=== PATIENT | female | born 1945 | race Caucasian/White ===

== ENCOUNTER 2017-08-07 13:43 | Observation (INO) | payer MEDICARE ==
--- NOTE | 2017-08-07 14:11 | RADIOLOGY REPORT (SQ) ---
EXAM DESCRIPTION: CT HEAD WITHOUT COMPLETED DATE/TIME: 08/07/2017 1:54 pm REASON FOR STUDY: stroke s/s COMPARISON: None. TECHNIQUE: Axial images acquired through the brain without intravenous contrast. Images reviewed wi th bone, brain and subdural windows. Additional sagittal and coronal reconstructions were generated. Images stored on PACS. All CT scanners at this facility use dose modulation, iterative reconstruction, and/or weight based d osing when appropriate to reduce radiation dose to as low as reasonably achievable (ALARA). [facility]: Dose Right [facility]: CareDose [facility]: Dose Right [facility]: Teradose 4D [facility]: [email or web address] RADIATION DOSE: CT Rad equipment meets quality standard of care and radiation dose reduction techniq ues were employed. CTDIvol: 53.2 mGy. DLP: 991 mGy-cm. mGy. LIMITATIONS: None. FINDINGS: VENTRICLES: Normal size and contour. CEREBRUM: No masses. No hemorrhage. No midline shift. No evidence for acute infarction. Normal gra y/white matter differentiation. No areas of low density in the white matter. CEREBELLUM: No masses. No hemorrhage. No alteration of density. No evidence for acute infarction. EXTRAAXIAL SPACES: No fluid collections. No masses. ORBITS AND GLOBE: No intra- or extraconal masses. Normal contour of globe without masses. CALVARIUM: No fracture. PARANASAL SINUSES: No fluid or mucosal thickening. SOFT TISSUES: No mass or hematoma. OTHER: No other significant finding. IMPRESSION: NORMAL BRAIN CT WITHOUT CONTRAST. EVIDENCE OF ACUTE STROKE: NO. COMMENT: Findings were reported to the ordering physician at 1406 hours on this date. Quality ID # [id number]: Final reports with documentation of one or more dose reduction techniques (e.g., Au tomated exposure control, adjustment of the mA and/or kV according to patient size, use of iterative reconstruction technique) TECHNICAL DOCUMENTATION: JOB ID: [id number] [employer] All Rights Reserved Reading location - IP/workstation name: [email or web address]
--- NOTE | 2017-08-07 14:30 | ER Document Report ---
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 Patient denies chest pain or shortness of breath. TRAVEL OUTSIDE OF THE [place] IN LAST 30 DAYS: No - HPI Patient complains to provider of: Other Onset: Just prior to arrival - Numbness Awoke with symptoms: No Symptoms are: Constant Duration: Continues in ED Quality of pain: No pain Severity: None Pain Level: Denies Loss of consciousness: No loss of consciousness Was STROKE ALERT Called: Yes Baseline Cognitive: Alert, oriented X 3 Baseline Gait: Uses a cane/walker - She walks with a brace Pre-existing weakness: Upper extremity Alert To: Name/Voice Patient Orientation: Person, Place, Time New weakness: denies: LUE, LLE, RUE, RLE Altered sensation: denies: LUE, LLE, RUE, RLE Associated symptoms: denies: Chest pain, Headache Similar symptoms previously: Yes Recently seen / treated by doctor: No - Related Data Allergies/Adverse Reactions: Sulfa (Sulfonamide Antibiotics) Allergy (Verified 08/07/17 14:20) Past Medical History - General Information source: Patient - Social History Smoking Status: Never Smoker Cigarette use (# per day): No Chew tobacco use (# tins/day): No Frequency of alcohol use: None Drug Abuse: None Lives with: Family Family History: None Patient has suicidal ideation: No Patient has homicidal ideation: No Endocrine Medical History: Reports: Hx Diabetes Mellitus Type 2 Renal/ Medical History: Reports: None. Denies: Hx Peritoneal Dialysis Malignancy Medical History: Reports: None GI Medical History: Reports: None Musculoskeltal Medical History: Reports None Skin Medical History: Reports None Psychiatric Medical History: Reports: None Traumatic Medical History: Reports: None Infectious Medical History: Reports: None Past Surgical History: Reports: Hx Cardiac Catheterization, Hx Cardiac Surgery - stent x3, Hx Section - x3, Hx Orthopedic Surgery - left ankle, right knee Review of Systems - Review of Systems Constitutional: denies: Chills, Fever EENT: No symptoms reported Cardiovascular: No symptoms reported Respiratory: No symptoms reported Gastrointestinal: No symptoms reported Genitourinary: No symptoms reported Female Genitourinary: No symptoms reported Musculoskeletal: No symptoms reported Skin: No symptoms reported Hematologic/Lymphatic: No symptoms reported Neurological/Psychological: See HPI Physical Exam - Vital signs Vitals: Pulse Resp BP Pulse Ox 65 12 152/78 H 99 08/07/17 14:09 08/07/17 14:09 08/07/17 14:09 08/07/17 14:09 Notes: Physical exam: GENERAL: 72-year-old female, alert and oriented 3, no acute distress HEAD: Atraumatic, normocephalic. EYES: Pupils equal round and reactive to light, extraocular movements intact, sclera anicteric, conjunctiva are normal. ENT: TMs normal, nares patent, oropharynx clear without exudates. Moist mucous membranes. NECK: Normal range of motion, supple without obvious mass or JVD. LUNGS: Breath sounds clear to auscultation bilaterally and equal. No wheezes rales or rhonchi. HEART: Regular rate and rhythm without murmurs, rubs or gallops. ABDOMEN: Soft, normoactive bowel sounds. No tenderness to palpation. No guarding, no rebound. No masses appreciated. EXTREMITIES: Normal range of motion, no pitting or edema. No clubbing or cyanosis. NEUROLOGICAL: Cranial nerves II through XII grossly intact except for subjective numbness to the left side of the tongue. She is alert and keenly responsive and she knows the month and her age, she is able to open and close her eyes and face, her gaze is normal, her visual colon are intact, there is no motor arm or leg drift (she does have a left lower extremity splint from baseline weakness from previous stroke, finger to nose is intact, sensory is grossly normal, picture description, object naming and sentence reading is good , there is no dysarthria and no extinction. Her NIH score is 0-1 at this time PSYCH: Normal mood, normal affect. SKIN: Warm, Dry, normal turgor, no rashes or lesions noted. Course - Re-evaluation Re-evalutation: 08/07/17 23:58 I did get a hold of the patient's primary care physician in [place] (Dr Faye [phone]) and he did fax over the patient's recent history with MRI from last year. Patient will be admitted for further workup 08/07/17 23:59 Patient's NIH score is 1 based upon subjective numbness of the tongue. She is not a candidate for thrombolytics based upon a low NIH score and a history of hemorrhagic CVA. - Vital Signs Vital signs: Temp Pulse Resp BP Pulse Ox 65 12 152/78 H 99 08/07/17 14:09 08/07/17 14:09 08/07/17 14:09 08/07/17 14:09 - Laboratory Result Diagrams: 08/07/17 14:00 08/07/17 14:00 - Diagnostic Test Radiology reviewed: Image reviewed, Reports reviewed - CT of the head shows no acute bleed Critical Care Note - Critical Care Note Total time excluding time spent on procedures (mins): 60 Discharge - Discharge Clinical Impression: CVA Condition: Stable Disposition: ADMITTED OBSERVATION Admitting Provider: Hospitalist - Norah Diaz/Dr Orozco Unit Admitted: Telemetry
[2017-08-07 14:38] LABS: ABSOLUTE BASOPHILS # (AUTO) 0.1 10^3/uL (0.0-0.2); ABSOLUTE EOSINOPHILS # (AUTO) 0.3 10^3/uL (0.0-0.6); ABSOLUTE MONOCYTES (AUTO) 0.5 10^3/uL (0.1-1.4); ABSOLUTE NEUT (AUTO) 4.3 10^3/uL (1.7-8.2); EOSINOPHILS % (AUTO) 4.7 % (0-6); HEMATOCRIT 37.4 % (36.0-47.0); HEMOGLOBIN 12.5 g/dL (12.0-15.5); LYMPHOCYTES % (AUTO) 27.6 % (13-45); MEAN CORPUSCULAR HEMOGLOBIN 28.6 pg (27.0-33.4); MEAN CORPUSCULAR HGB CONC 33.5 g/dL (32.0-36.0); MEAN CORPUSCULAR VOLUME 85 fl (80-97); MONOCYTES % (AUTO) 7.2 % (3-13); PLATELET COUNT 275 10^3/uL (150-450); RED BLOOD COUNT 4.38 10^6/uL (3.72-5.28); RED CELL DISTRIBUTION WIDTH 14.5 % (11.5-14.0); SEGMENTED NEUTROPHILS % (AUTO) 59.5 % (42-78); TOTAL CELLS COUNTED % (AUTO) 100 %; WHITE BLOOD COUNT 7.2 10^3/uL (4.0-10.5)
[2017-08-07 14:48] LABS: ALANINE AMINOTRANSFERASE 51 U/L (9-52); ALBUMIN 4.3 g/dL (3.5-5.0); ALKALINE PHOSPHATASE 196 U/L (38-126); ANION GAP 14 (5-19); ASPARTATE AMINO TRANSFERASE 60 U/L (14-36); BILIRUBIN,DIRECT 0.3 mg/dL (0.0-0.4); BILIRUBIN,TOTAL 0.3 mg/dL (0.2-1.3); BLOOD UREA NITROGEN 23 mg/dL (7-20); CALCIUM 9.5 mg/dL (8.4-10.2); CARBON DIOXIDE 25 mmol/L (22-30); CHLORIDE 110 mmol/L (98-107); CREATINE KINASE 111 U/L (30-135); GLUCOSE 148 mg/dL (75-110); POTASSIUM 4.7 mmol/L (3.6-5.0); SODIUM 148.5 mmol/L (137-145); TOTAL PROTEIN 7.5 g/dL (6.3-8.2)
[2017-08-07 14:59] LABS: TROPONIN I < 0.012 ng/mL
--- NOTE | 2017-08-07 15:04 | RADIOLOGY REPORT (SQ) ---
EXAM DESCRIPTION: CHEST SINGLE VIEW COMPLETED DATE/TIME: 08/07/2017 2:56 pm REASON FOR STUDY: left weakness COMPARISON: None. EXAM PARAMETERS: NUMBER OF VIEWS: One view. TECHNIQUE: Single frontal radiographic view of the chest acquired. RADIATION DOSE: NA LIMITATIONS: None. FINDINGS: LUNGS AND PLEURA: No opacities, masses or pneumothorax. No pleural effusion. MEDIASTINUM AND HILAR STRUCTURES: No masses. Contour normal. HEART AND VASCULAR STRUCTURES: Heart normal in size. Normal vasculature. BONES: No acute findings. HARDWARE: None in the chest. OTHER: No other significant finding. IMPRESSION: NO ACUTE RADIOGRAPHIC FINDING IN THE CHEST. TECHNICAL DOCUMENTATION: JOB ID: [id number] [employer]- All Rights Reserved Reading location - IP/workstation name: [email or web address]
[2017-08-07] MEDS ORDERED: NORMAL SALINE 1000 ML 1,000 ML IV PRN (16:18)
[2017-08-07] MEDS ORDERED: ACETAMINOPHEN 325 MG TABLET PO PRN (16:18)
[2017-08-07] MEDS ORDERED: ONDANSETRON HCL INJ/PF 4 MG/2 ML SDV IV PRN (16:18)
[2017-08-07] MEDS ORDERED: DOCUSATE SODIUM 100 MG CAPSULE PO PRN (16:18)
[2017-08-07] MEDS ORDERED: MAGNESIUM HYDROXIDE SUSP 30 ML UDCUP PO PRN (16:18)
[2017-08-07] MEDS ORDERED: HYDRALAZINE HCL INJ/PF 20 MG/1 ML SDV IV PRN (16:38)
[2017-08-07] MEDS ORDERED: DEXTROSE 40% GEL 15 GM TUBE PO PRN ×2 (16:38)
[2017-08-07] MEDS ORDERED: INSULIN LISPRO 100 UNIT/ML 3 ML VIAL SUBCUT PRN (16:38)
[2017-08-07] MEDS ORDERED: DEXTROSE 50%-WATER 25 GM/50 ML DISP.SYRIN IV PRN ×2 (16:38)
[2017-08-07] MEDS ORDERED: GLUCAGON,HUMAN RECOMB 1 MG INJ IM PRN (16:38)
--- NOTE | 2017-08-07 16:52 | PDOC H&P ---
History of Present Illness Admission Date/PCP: 08/07/17 15:53 Patient complains of: Left sided paresthesia History of Present Illness: MELISSA GARCIA is a 72 year old female with a past medical history significant for hemorrhagic CVA approximately 16 months ago, CAD with stenting 3, diabetes mellitus type 2, hypertension, hyperlipidemia, COPD, and remote history of bladder cancer who presented to the emergency department today with a complaint of left tongue numbness and left arm heaviness similar to her previous stroke symptoms. The patient reports that she continues to have left-sided facial paresthesia and burning sensation and left upper and lower extremity weakness, however she has never had tongue numbness before and the left upper extremity heaviness today is significantly worse than her usual. The patient reports that the tongue numbness resolved spontaneously after a couple of minutes prior to her arrival in the emergency department and that her left arm heaviness continues to improve and is nearly back to her baseline. Evaluation in the emergency department is benign; chest x-ray is normal, EKG demonstrates a sinus rhythm, head CT was negative for evidence of acute CVA. Laboratory evaluation reveals dehydration as evidenced by elevated sodium of 148.5 and BUN of 23. She is referred to the hospitalist service for TIA/CVA rule out. Past Medical History Cardiac Medical History: Reports: Coronary Artery Disease, Hyperlipidema, Hypertension Denies: Congestive Heart Failure, DVT, Myocardial Infarction Pulmonary Medical History: Reports: Chronic Obstructive Pulmonary Disease (COPD) Denies: Pneumonia, Respiratory Failure EENT Medical History: Reports: None Neurological Medical History: Reports: Hemorrhagic CVA Endocrine Medical History: Reports: Diabetes Mellitus Type 2 Renal/ Medical History: Reports: None Malignancy Medical History: Reports: Other - Remote bladder cancer GI Medical History: Reports: None Musculoskeltal Medical History: Reports: None Skin Medical History: Reports: None Psychiatric Medical History: Reports: None Traumatic Medical History: Reports: None Hematology: Reports: None Infectious Medical History: Reports: None Past Surgical History Past Surgical History: Reports: Cardiac Catheterization - Cardiac stent 3, Section - x3, Orthopedic Surgery - left ankle, right knee Social History Information Source: Patient Lives with: Family Smoking Status: Never Smoker Frequency of Alcohol Use: Occasional Hx Recreational Drug Use: No - Triglyceride Y Hx Prescription Drug Abuse: No - Advance Directive Resuscitation Status: Full Code Surrogate healthcare decision maker:: The patient's daughter, Lay Quinn, Family History Family History: Reviewed & Not Pertinent Parental Family History Reviewed: Yes Children Family History Reviewed: Yes Sibling(s) Family History Reviewed.: Yes Medication/Allergy Home Medications: Amlodipine Besylate [Norvasc 5 mg Tablet] 5 mg PO DAILY 08/07/17 Glipizide [Glipizide Xl] 10 mg PO DAILY 08/07/17 Lisinopril [Prinivil 10 mg Tablet] 20 mg PO DAILY 08/07/17 Metformin HCl [Glucophage 500 mg Tablet] 500 mg PO BIDACBS 08/07/17 Metoprolol Tartrate [Lopressor 50 mg Tablet] 50 mg PO Q12 08/07/17 Allergies/Adverse Reactions: Sulfa (Sulfonamide Antibiotics) Allergy (Verified 08/07/17 14:20) Review of Systems Constitutional: ABSENT: chills, fever(s), headache(s), weight gain, weight loss Eyes: ABSENT: visual disturbances Ears: ABSENT: hearing changes Cardiovascular: ABSENT: chest pain, dyspnea on exertion, edema, orthropnea, palpitations Respiratory: ABSENT: cough, hemoptysis Gastrointestinal: ABSENT: abdominal pain, constipation, diarrhea, hematemesis, hematochezia, nausea, vomiting Genitourinary: ABSENT: dysuria, hematuria Musculoskeletal: PRESENT: as per HPI. ABSENT: joint swelling Integumentary: ABSENT: rash, wounds Neurological: PRESENT: as per HPI, numbness, paresthesias, weakness. ABSENT: abnormal gait, abnormal speech, confusion, dizziness, focal weakness, syncope Psychiatric: ABSENT: anxiety, depression, homidical ideation, suicidal ideation Endocrine: ABSENT: cold intolerance, heat intolerance, polydipsia, polyuria Hematologic/Lymphatic: ABSENT: easy bleeding, easy bruising Physical Exam Vital Signs: Temp Pulse Resp BP Pulse Ox 65 21 H 136/68 H 99 08/07/17 14:09 08/07/17 16:03 08/07/17 16:03 08/07/17 16:03 General appearance: PRESENT: no acute distress, cooperative, obese, well- developed, well-nourished Head exam: PRESENT: atraumatic, normocephalic Eye exam: PRESENT: conjunctiva pink, EOMI, PERRLA. ABSENT: scleral icterus Ear exam: PRESENT: normal external ear exam Mouth exam: PRESENT: moist, tongue midline Neck exam: ABSENT: carotid bruit, JVD, lymphadenopathy, thyromegaly Respiratory exam: PRESENT: clear to auscultation francois, symmetrical, unlabored. ABSENT: rales, rhonchi, wheezes Cardiovascular exam: PRESENT: RRR, +S1, +S2. ABSENT: diastolic murmur, rubs, systolic murmur Pulses: PRESENT: normal dorsalis pedis pul Vascular exam: PRESENT: normal capillary refill GI/Abdominal exam: PRESENT: normal bowel sounds, soft. ABSENT: distended, guarding, mass, organolmegaly, rebound, tenderness Rectal exam: PRESENT: deferred Extremities exam: PRESENT: full ROM. ABSENT: calf tenderness, clubbing, pedal edema Neurological exam: PRESENT: alert, awake, oriented to person, oriented to place , oriented to time, oriented to situation, abnormal gait - Baseline abnormal gait; left lower extremity orthotic, at baseline per patient, CN II-XII grossly intact. ABSENT: motor sensory deficit, aphasic Psychiatric exam: PRESENT: appropriate affect, normal mood. ABSENT: homicidal ideation, suicidal ideation Skin exam: PRESENT: dry, intact, warm. ABSENT: cyanosis, rash Results Impressions: Head CT 08/07/17 00:00 IMPRESSION: NORMAL BRAIN CT WITHOUT CONTRAST. EVIDENCE OF ACUTE STROKE: NO. Chest X-Ray 08/07/17 14:24 IMPRESSION: NO ACUTE RADIOGRAPHIC FINDING IN THE CHEST. Assessment & Plan - Diagnosis (1) TIA (transient ischemic attack) Qualifiers: Transient cerebral ischemia type: unspecified Qualified Code(s): G45.9 - Transient cerebral ischemic attack, unspecified Is this a current diagnosis for this admission?: Yes Plan: The patient is admitted to [facility] on continuous cardiac telemetry. We will obtain hemoglobin A1c and lipid panel for risk stratification. Head CT was negative for acute CVA. We will evaluate further with MRI/MRA of the head, carotid Doppler, and echocardiogram. We will continue daily aspirin therapy. High-dose atorvastatin. PT/OT/ST evaluation and treatment per protocols. (2) Hypertension Is this a current diagnosis for this admission?: Yes Plan: We will resume the patient's home medications once reconciled. IV hydralazine as needed for blood pressure control. (3) Hyperlipidemia Is this a current diagnosis for this admission?: Yes Plan: We will assess lipid panel. High-dose atorvastatin. (4) Diabetes mellitus type 2 in obese Is this a current diagnosis for this admission?: Yes Plan: We will hold the patient's glipizide and metformin while inpatient. She is placed on a consistent carb diet. Accu-Cheks before meals and at bedtime with Humalog for sliding scale coverage. We will assess the patient's hemoglobin A1c. 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 She is ambulatory with a walker. The patient reports that her symptoms today were similar to the early onset of her previous CVA. She was previously on daily aspirin therapy but is unsure if she was on statin therapy. The ED provider has graciously been in contact with her primary care provider in [place] and has requested medical records. - Time Time Spent: 50 to 70 Minutes Medications reviewed and adjusted accordingly: Yes Anticipated discharge: Home Within: within 24 hours
--- NOTE | 2017-08-07 18:29 | EKG REPORT ---
SEVERITY:- ABNORMAL ECG - SINUS RHYTHM BORDERLINE LEFT AXIS DEVIATION ABNRM R PROG, CONSIDER ASMI OR LEAD PLACEMENT : Confirmed by: Bret Loredo MD 07-Aug-2017 18:28:49
[2017-08-07] MEDS ORDERED: ATORVASTATIN CALCIUM 80 MG TABLET PO SCH (22:00)
[2017-08-07] MEDS: FAMOTIDINE 20 MG TABLET PO SCH (22:45)
[2017-08-07] MEDS: HEPARIN SOD (PORCINE) 5,000 UNIT/ML 1 ML SYRINGE SUBCUT SCH (22:46)
[2017-08-08] MEDS: HEPARIN SOD (PORCINE) 5,000 UNIT/ML 1 ML SYRINGE SUBCUT SCH ×2 (05:25→14:21)
[2017-08-08 05:45] LABS: HEMATOCRIT 34.6 % (36.0-47.0); HEMOGLOBIN 11.5 g/dL (12.0-15.5); MEAN CORPUSCULAR HEMOGLOBIN 28.2 pg (27.0-33.4); MEAN CORPUSCULAR HGB CONC 33.2 g/dL (32.0-36.0); MEAN CORPUSCULAR VOLUME 85 fl (80-97); PLATELET COUNT 241 10^3/uL (150-450); RED BLOOD COUNT 4.08 10^6/uL (3.72-5.28); RED CELL DISTRIBUTION WIDTH 14.4 % (11.5-14.0)
[2017-08-08 05:56] LABS: ANION GAP 10 (5-19); BLOOD UREA NITROGEN 18 mg/dL (7-20); CALCIUM 9.3 mg/dL (8.4-10.2); CARBON DIOXIDE 25 mmol/L (22-30); CHLORIDE 112 mmol/L (98-107); CHOLESTEROL 123.81 mg/dL (0-200); GLUCOSE 60 mg/dL (75-110); POTASSIUM 4.7 mmol/L (3.6-5.0); SODIUM 146.7 mmol/L (137-145); TRIGLYCERIDES 71 mg/dL (<150)
[2017-08-08 06:08] LABS: DIRECT LDL 46 mg/dL (<100)
--- NOTE | 2017-08-08 08:44 | RADIOLOGY REPORT (SQ) ---
EXAM DESCRIPTION: MRA HEAD WITHOUT; MRI HEAD WITHOUT COMPLETED DATE/TIME: 08/07/2017 9:43 pm REASON FOR STUDY: TIA/CVA work up; previous hemorrhagic CVA G45.9 TRANSIENT CEREBRAL ISCHEMIC ATTAC K, UNSPECIFIED E11.9 TYPE 2 DIABETES MELLITUS WITHOUT COMPLICATIONS COMPARISON: CT brain 08/07/2017 TECHNIQUE: Multiplanar imaging includes non-contrasted T1, T2, FLAIR, and diffusion with ADC map seq uences. Images stored on PACS. 3D [id number] MRA exam [place] was performed, source data and maximum intensity projecte d images were reviewed. Images stored on PACs. LIMITATIONS: None. FINDINGS: ANATOMY: No developmental anomalies. Normal vascular flow voids. Pituitary fossa normal. CSF SPACES: Normal in size and contour. No hemorrhage. CEREBRUM: Old infarct right thalamus with hemosiderin staining, best shown on gradient echo T2 image 15. No MR evidence of acute ischemic change. Mild age-appropriate increased deep periventricular wh ite matter signal on FLAIR imaging, likely minimal small vessel ischemic change in the bifrontal and biparietal regions. No evidence of acute intracranial hemorrhage, mass, or extraaxial fluid collecti on. POSTERIOR FOSSA: No signal alteration. No hemorrhage. No edema, masses or mass effect. Internal sanam tory canals, cerebello-pontine angles, mastoids normal. DIFFUSION IMAGING: Negative for acute or sub-acute infarction. ORBITS: No masses. Globes post cataract surgery. PARANASAL SINUSES: No fluid levels. Mucosa normal. [place] MRA: No [place] stenosis, vascular malformation, or aneurysm. IMPRESSION: Old hemorrhagic infarct right thalamus. No acute ischemic change. Unremarkable [place] MRA exam EVIDENCE OF ACUTE STROKE: NO. TECHNICAL DOCUMENTATION: JOB ID: [id number]- All Rights Reserved Reading location - IP/workstation name: [email or web address]
--- NOTE | 2017-08-08 08:44 | RADIOLOGY REPORT (SQ) ---
EXAM DESCRIPTION: MRA HEAD WITHOUT; MRI HEAD WITHOUT COMPLETED DATE/TIME: 08/07/2017 9:43 pm REASON FOR STUDY: TIA/CVA work up; previous hemorrhagic CVA G45.9 TRANSIENT CEREBRAL ISCHEMIC ATTAC K, UNSPECIFIED E11.9 TYPE 2 DIABETES MELLITUS WITHOUT COMPLICATIONS COMPARISON: CT brain 08/07/2017 TECHNIQUE: Multiplanar imaging includes non-contrasted T1, T2, FLAIR, and diffusion with ADC map seq uences. Images stored on PACS. 3D [id number] MRA exam [place] was performed, source data and maximum intensity projecte d images were reviewed. Images stored on PACs. LIMITATIONS: None. FINDINGS: ANATOMY: No developmental anomalies. Normal vascular flow voids. Pituitary fossa normal. CSF SPACES: Normal in size and contour. No hemorrhage. CEREBRUM: Old infarct right thalamus with hemosiderin staining, best shown on gradient echo T2 image 15. No MR evidence of acute ischemic change. Mild age-appropriate increased deep periventricular wh ite matter signal on FLAIR imaging, likely minimal small vessel ischemic change in the bifrontal and biparietal regions. No evidence of acute intracranial hemorrhage, mass, or extraaxial fluid collecti on. POSTERIOR FOSSA: No signal alteration. No hemorrhage. No edema, masses or mass effect. Internal sanam tory canals, cerebello-pontine angles, mastoids normal. DIFFUSION IMAGING: Negative for acute or sub-acute infarction. ORBITS: No masses. Globes post cataract surgery. PARANASAL SINUSES: No fluid levels. Mucosa normal. [place] MRA: No [place] stenosis, vascular malformation, or aneurysm. IMPRESSION: Old hemorrhagic infarct right thalamus. No acute ischemic change. Unremarkable [place] MRA exam EVIDENCE OF ACUTE STROKE: NO. TECHNICAL DOCUMENTATION: JOB ID: [id number]- All Rights Reserved Reading location - IP/workstation name: [facility]
[2017-08-08] MEDS: FAMOTIDINE 20 MG TABLET PO SCH (09:52)
[2017-08-08] MEDS ORDERED: ASPIRIN 81 MG TABLET, ENT COATED PO SCH ×2 (10:00)
[2017-08-08] MEDS ORDERED: METOPROLOL TARTRATE 50 MG TABLET PO SCH (10:00)
[2017-08-08] MEDS ORDERED: AMLODIPINE BESYLATE 5 MG TABLET PO SCH (10:00)
[2017-08-08] MEDS ORDERED: LISINOPRIL 10 MG TABLET PO SCH (10:00)
--- NOTE | 2017-08-08 14:31 | RADIOLOGY REPORT (SQ) ---
EXAM DESCRIPTION: CAROTID DOPPLER COMPLETED DATE/TIME: 08/08/2017 2:19 pm REASON FOR STUDY: TIA/CVA work up G45.9 TRANSIENT CEREBRAL ISCHEMIC ATTACK, UNSPECIFIED E11.9 TYPE 2 DIABETES MELLITUS WITHOUT COMPLICATIONS COMPARISON: None. TECHNIQUE: Grayscale ultrasound, Doppler velocity and spectra, and color Doppler images acquired of the extra-cranial carotid and vertebral arteries. Images stored on PACS. LIMITATIONS: None. FINDINGS: RIGHT CAROTID CCA Velocities: Within normal limits. ICA Velocities Peak systolic 0.90 m/s. End diastolic 0.18 m/s. Proximal ICA/CCA peak systolic ratio 1.1. Coarse calcified plaque in the bulb. LEFT CAROTID CCA Velocities: Within normal limits. ICA Velocities Peak systolic 0.72 m/s. End diastolic 0.17 m/s. Proximal ICA/CCA peak systolic ratio 1.0. Spectra normal. No significant plaque. VERTEBRAL ARTERIES: Antegrade flow. Normal waveforms. SUBCLAVIAN ARTERIES: Not imaged. OTHER: No other significant finding. IMPRESSION: NO HEMODYNAMICALLY SIGNIFICANT STENOSIS. COMMENT: Quality ID #[id number]: Velocity criteria are extrapolated from the diameter data as defined by t he Society of Radiologists in Ultrasound Consensus Conference. Radiology 2003: 229; 340-346. TECHNICAL DOCUMENTATION: JOB ID: [id number] [employer]- All Rights Reserved Reading location - IP/workstation name: [email or web address]
[2017-08-08 16:59] VITALS: BP 145/77
--- NOTE | 2017-08-08 17:36 | XCELERA REPORT ---
[address] [address] Transthoracic Echocardiogram Report Name: MELISSA GARCIA Age: 72 yrs Gender: Female : 1945 Patient Status: Inpatient Patient Location: [address] [place] [address] Study Date: 08/08/2017 09:03 AM Height: 62 in Weight: 190 lb BSA: 1.9 m2 Procedure: A complete two-dimensional transthoracic echocardiogram was performed (2D, M-mode, spectral and color flow Doppler). The study was technically adequate with some images being suboptimal in quality. Reason For Study: TIA/CVA work up Ordering Physician: RAMANA WEIR Performed By: Floyd Augustin Interpretation Summary The left ventricle has normal cavity size with globally normal systolic function. Estimated left ventricular ejection fraction is 60%. The left ventricular ejection fraction is normal. Doppler measurements suggest pseudonormalized left ventricular relaxation, which is associated with grade II/IV or mild to moderate diastolic dysfunction Wall motion cannot be accurately commented on, but no definite regional wall motion abnormalities noted. There is borderline concentric left ventricular hypertrophy. The left ventricle is grossly normal size. The right ventricle is grossly normal size. The right ventricular systolic function is normal. The right atrium is normal in size The left atrial size is normal. There is a trace amount of mitral regurgitation There is no mitral valve stenosis. There is no aortic valve stenosis No aortic regurgitation is present. There is no tricuspid stenosis. No tricuspid regurgitation. The aortic root is not well visualized. The inferior vena cava appeared normal and decreased > 50% with respiration (RAP 5-10 mmHg) There is no pericardial effusion. MMode/2D Measurements & Calculations RVDd: 3.3 cm LVIDd: 3.9 cm FS: 27.9 % Ao root diam: 3.2 cm IVSd: 0.88 cm LVIDs: 2.8 cm EDV(Teich): 66.8 ml LVPWd: 1.3 cm ESV(Teich): 30.3 ml Ao root area: 7.8 cm2 EF(Teich): 54.6 % LA dimension: 3.2 cm Doppler Measurements & Calculations MV E max yvonne: MV P1/2t max yvonne: Ao V2 max: LV V1 max P.8 cm/sec 78.2 cm/sec 107.9 cm/sec 2.3 mmHg MV A max yvonne: MV P1/2t: 82.5 msec Ao max PG: LV V1 max: 79.0 cm/sec 4.7 mmHg 75.6 cm/sec MV E/A: 0.92 MVA(P1/2t): 2.7 cm2 MV dec slope: 277.6 cm/sec2 MV dec time: 0.30 sec PA V2 max: 82.3 cm/sec PA max P.7 mmHg Left Ventricle The left ventricle is grossly normal size. There is borderline concentric left ventricular hypertrophy. The left ventricular ejection fraction is normal. Doppler measurements suggest pseudonormalized left ventricular relaxation, which is associated with grade II/IV or mild to moderate diastolic dysfunction. Wall motion cannot be accurately commented on, but no definite regional wall motion abnormalities noted. Right Ventricle The right ventricle is grossly normal size. There is normal right ventricular wall thickness. The right ventricular systolic function is normal. Atria The right atrium is normal in size. The left atrial size is normal. Interarterial septum not well visualized and not well dopplered. Cannot comment on ASD/PFO presence. Mitral Valve The mitral valve is grossly normal. There is no mitral valve stenosis. There is a trace amount of mitral regurgitation. Aortic Valve The aortic valve is grossly normal. There is no aortic valve stenosis. No aortic regurgitation is present. Tricuspid Valve The tricuspid valve is not well visualized, but is grossly normal. There is no tricuspid stenosis. No tricuspid regurgitation. Pulmonic Valve The pulmonic valve is not well visualized. Great Vessels The aortic root is not well visualized. The inferior vena cava appeared normal and decreased > 50% with respiration (RAP 5-10 mmHg). Effusions There is no pericardial effusion. : PIPER WEIRC > Cortney Null
--- NOTE | 2017-08-08 17:41 | PDOC DISCHARGE SUMMARY ---
General - Admit/Disc Date/PCP Admission Date/Primary Care Provider: 08/07/17 15:53 Discharge Date: 08/08/17 - Discharge Diagnosis (1) TIA (transient ischemic attack) Is this a current diagnosis for this admission?: Yes Summary: The patient was admitted for complaint of increased Left facial numbness and increased LUE heaviness from her baseline as a result of a previous CVA. She also reported Left side tongue numbness that was a new symptom and had resolved prior to her arrival in the ED. The patient EKG showed normal sinus rhythm. Head CT was negative for acute CVA. Head MRI revealed an old hemorrhagic infarct of the right thalamus, but no acute CVA. Brain MRA showed an unremarkable [place] Carotid doppler was negative for hemodynamically significant stenosis. Echocardiogram revealed mild to moderate diastolic dysfunction with a preserved ejection fraction. No cardiac source symptoms revealed. The patient was observed on cardiac telemetry and remained in normal sinus rhythm. She was placed on daily aspirin and atorvastatin therapy. ST/PT/OT evaluated the patient and recommend home health physical therapy. She is recommended to follow up with her primary care provider within 1 week. She is advised to continue her aspirin and atorvastatin therapy. She is also recommended to follow up with Cardiology, Dr. Null, for Event monitoring. At time of discharge, the patient is instable condition, maintaining oxygen saturations on room air, and at her baseline neurological function. (2) Hypertension Is this a current diagnosis for this admission?: Yes Summary: The patient remained normotensive on her home dose medications. (3) Hyperlipidemia Is this a current diagnosis for this admission?: Yes Summary: Lipid panel was evaluated: HDL 59, LDL 46, Tri 71, TChol 123 Her home dose atorvastatin was continued. (4) Diabetes mellitus type 2 in obese Is this a current diagnosis for this admission?: Yes Summary: A1C is 7.1% She is recommended to continue her home diabetic regiment. (5) History of CVA (cerebrovascular accident) Is this a current diagnosis for this admission?: Yes - Additional Information Resuscitation Status: Full Code Discharge Diet: Cardiac, Diabetic Discharge Activity: Activity As Tolerated, Balance Activity w/Rest Prescriptions: Atorvastatin Calcium [Lipitor 80 mg Tablet] 80 mg PO QHS #30 tablet Home Medications: Amlodipine Besylate [Norvasc 5 mg Tablet] 5 mg PO DAILY 08/07/17 Aspirin [Aspirin EC] 81 mg PO DAILY 08/07/17 Atorvastatin Calcium [Lipitor 80 mg Tablet] 80 mg PO QHS 08/07/17 Glipizide [Glipizide Xl] 10 mg PO DAILY 08/07/17 Lisinopril [Prinivil 10 mg Tablet] 20 mg PO DAILY 08/07/17 Metformin HCl [Glucophage 500 mg Tablet] 1,000 mg PO BIDACBS 08/07/17 Metoprolol Tartrate [Lopressor 50 mg Tablet] 50 mg PO Q12 08/07/17 Sennosides [Senna] 8.6 mg PO DAILYP PRN 08/07/17 Acetaminophen [Tylenol 325 mg Tablet] 650 mg PO Q4HP PRN tablet 08/08/17 Atorvastatin Calcium [Lipitor 80 mg Tablet] 80 mg PO QHS #30 tablet 08/08/17 History of Present Illness History of Present Illness: MELISSA GARCIA is a 72 year old female with a past medical history significant for hemorrhagic CVA approximately 16 months ago, CAD with stenting 3, diabetes mellitus type 2, hypertension, hyperlipidemia, COPD, and remote history of bladder cancer who presented to the emergency department today with a complaint of left tongue numbness and left arm heaviness similar to her previous stroke symptoms. The patient reports that she continues to have left-sided facial paresthesia and burning sensation and left upper and lower extremity weakness, however she has never had tongue numbness before and the left upper extremity heaviness today is significantly worse than her usual. The patient reports that the tongue numbness resolved spontaneously after a couple of minutes prior to her arrival in the emergency department and that her left arm heaviness continues to improve and is nearly back to her baseline. Evaluation in the emergency department is benign; chest x-ray is normal, EKG demonstrates a sinus rhythm, head CT was negative for evidence of acute CVA. Laboratory evaluation reveals dehydration as evidenced by elevated sodium of 148.5 and BUN of 23. She is referred to the hospitalist service for TIA/CVA rule out. Physical Exam Vital Signs: Temp Pulse Resp BP Pulse Ox 98.3 F 59 L 20 132/69 H 97 08/08/17 11:49 08/08/17 12:00 08/08/17 12:00 08/08/17 12:00 08/08/17 12:00 Intake & Output 05/24/18 05/25/18 05/26/18 06:59 06:59 06:59 Intake Total 810 697 Balance 810 697 Weight 80.4 kg General appearance: PRESENT: no acute distress, well-developed, well-nourished, other - overweight Head exam: PRESENT: atraumatic, normocephalic Eye exam: PRESENT: conjunctiva pink, EOMI, PERRLA. ABSENT: scleral icterus Ear exam: PRESENT: normal external ear exam Mouth exam: PRESENT: moist, tongue midline Neck exam: ABSENT: carotid bruit, JVD, lymphadenopathy, thyromegaly Respiratory exam: PRESENT: clear to auscultation francois, symmetrical, unlabored. ABSENT: rales, rhonchi, wheezes Cardiovascular exam: PRESENT: RRR, +S1, +S2. ABSENT: diastolic murmur, rubs, systolic murmur Pulses: PRESENT: normal dorsalis pedis pul Vascular exam: PRESENT: normal capillary refill GI/Abdominal exam: PRESENT: normal bowel sounds, soft. ABSENT: distended, guarding, mass, organolmegaly, rebound, tenderness Rectal exam: PRESENT: deferred Extremities exam: PRESENT: full ROM. ABSENT: calf tenderness, clubbing, pedal edema Neurological exam: PRESENT: alert, awake, oriented to person, oriented to place , oriented to time, oriented to situation, CN II-XII grossly intact, other - Decreased strength to RLE (POA). ABSENT: motor sensory deficit Psychiatric exam: PRESENT: appropriate affect, normal mood. ABSENT: homicidal ideation, suicidal ideation Skin exam: PRESENT: dry, intact, warm. ABSENT: cyanosis, rash Results Laboratory Results: 08/08/17 04:06 08/08/17 04:06 08/08/17 08/08/17 04:06 04:06 WBC 7.0 RBC 4.08 Hgb 11.5 L Hct 34.6 L MCV 85 MCH 28.2 MCHC 33.2 RDW 14.4 H Plt Count 241 Sodium 146.7 H Potassium 4.7 Chloride 112 H Carbon Dioxide 25 Anion Gap 10 BUN 18 Creatinine 0.98 Est GFR ( Amer) > 60 Est GFR (Non-Af Amer) 55 L Glucose 60 L Calcium 9.3 Triglycerides 71 Cholesterol 123.81 LDL Cholesterol Direct 46 VLDL Cholesterol 14.0 HDL Cholesterol 59 08/07/17 19:00 Troponin I < 0.012 Impressions: Head CT 08/07/17 00:00 IMPRESSION: NORMAL BRAIN CT WITHOUT CONTRAST. EVIDENCE OF ACUTE STROKE: NO. Head MRI 08/07/17 00:00 IMPRESSION: Old hemorrhagic infarct right thalamus. No acute ischemic change. Unremarkable [place] MRA exam EVIDENCE OF ACUTE STROKE: NO. Chest X-Ray 08/07/17 14:24 IMPRESSION: NO ACUTE RADIOGRAPHIC FINDING IN THE CHEST. Brain MRI with MRA 08/07/17 16:20 IMPRESSION: Old hemorrhagic infarct right thalamus. No acute ischemic change. Unremarkable [place] MRA exam EVIDENCE OF ACUTE STROKE: NO. Carotid Doppler Study 08/08/17 16:21 IMPRESSION: NO HEMODYNAMICALLY SIGNIFICANT STENOSIS. Qualifiers - * PATIENT BEING DISCHARGED WITH ANY OF THE FOLLOWING DIAGNOSIS: No Plan Discharge Plan: Discharge to home with self care. Follow up with primary care provider within 1 week.
--- NOTE | 2017-08-13 14:41 | PDOC PROGRESS REPORT ---
Subjective Subjective: Stroke Clinic Visit Todays Visit Date: 08/13/2017 Hospital Discharge Date: 08/08/2017 Reason for Todays Visit: Hospital Follow Up after TIA Summary of Recent Hospitalization: Patient is a 72-year-old female with a history significant for hypertension, diabetes, coronary artery disease, hyperlipidemia as well as previous hemorrhagic CVA with residual left upper and lower extremity paresthesia and weakness. Patient was admitted to [facility] on 08/07/2017 with increased left-sided paresthesia including paresthesia of the left side of her tongue which was a new symptom for patient. During her stay her tongue paresthesia resolved. Stroke workup was negative, suggesting transient ischemic attack. Patient was already taking aspirin as well as atorvastatin and has been compliant with her antihypertensive medications. Patient is in the process of setting up home health physical therapy. Patient recently relocated to [place] 6 weeks ago moving from [place]. Risk Stratification Labs: Hgb A1C 7.1%, Cholesterol 123 , HDL 59 , LDL 46. Current Status: Patient was seen today for stroke/TIA clinic follow-up as part of the [facility] Study. Todays Post Stroke Functional Assessment was generated with an electronic eCare plan and the abbreviated results are listed below: Stroke Risk Factor Assessment: Stroke risk factor include: hypertension, diabetes, hyperlipidemia, inactivity, over weight Today, BP 141/69, HR 61. Encouraged home self-monitoring and recording a log Patient is on metformin and glipizide therapy for diabetes management Patient is on Lipitor 40 mg daily for cholesterol: denies missing any doses Patient reports being active for at least 20 minutes each day, at least 3 days a wee Patient drinks 1 glass of wine a day, patient denies any illicit substance abuse Medication list was reconciled Patient sees Dr Lyon for primary care, and is a new patient, her first visit will be September 01, 2017. Patient additionally has appointment to see cardiology, Dr. Null on 08/27/2017. Stroke Complications Assessment: The patient denies any signs or symptoms of UTI, pneumonia, dehydration, bleeding (hematuria, melena), dysphagia, cognitive deficits, tightening of the extremities suggestive of spasticity, or depression. Patient denies any safety concerns (mismanaged medications, falls, or needing 24 hour supervision). The patient has had no ER visits since leaving [facility]. Subjective Assessment: The patient is independent with IADLS and ADLS. 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 Patient lives alone and her daughter lives just a few streets over from her. Caregiver strain was verbally assessed, and no issues were identified. PMH: HTN, diabetes, HLD, CAD, previous hemorrhagic CVA 18 months ago, COPD, bladder cancer PSH: Cardiac cath, 3 stents placed, orthopedic surgery, Allergies: Sulfa Social: Patient does admit to drinking 1 glass of wine daily, no history of tobacco use or illicit substances ROS are negative except what is located in the HPI. Allergies/Adverse Reactions: Sulfa (Sulfonamide Antibiotics) Allergy (Verified 08/07/17 14:20) Home Medications: Amlodipine Besylate [Norvasc 5 mg Tablet] 5 mg PO DAILY 08/07/17 Aspirin [Aspirin EC] 81 mg PO DAILY 08/07/17 Atorvastatin Calcium [Lipitor 80 mg Tablet] 80 mg PO QHS 08/07/17 Glipizide [Glipizide Xl] 10 mg PO DAILY 08/07/17 Lisinopril [Prinivil 10 mg Tablet] 20 mg PO DAILY 08/07/17 Metformin HCl [Glucophage 500 mg Tablet] 1,000 mg PO BIDACBS 08/07/17 Metoprolol Tartrate [Lopressor 50 mg Tablet] 50 mg PO Q12 08/07/17 Sennosides [Senna] 8.6 mg PO DAILYP PRN 08/07/17 Physical Exam Vital Signs: BP 141/69, HR 61, RR 16 General appearance: PRESENT: no acute distress, cooperative, well-nourished. ABSENT: hard of hearing Head exam: PRESENT: atraumatic Eye exam: PRESENT: EOMI, nystagmus. ABSENT: conjunctival injection Mouth exam: PRESENT: moist, neck supple, tongue midline Teeth exam: ABSENT: poor dentation Neck exam: PRESENT: full ROM. ABSENT: carotid bruit, lymphadenopathy, tenderness, thyromegaly Respiratory exam: PRESENT: clear to auscultation francois, unlabored. ABSENT: accessory muscle use Cardiovascular exam: PRESENT: RRR, +S1, +S2. ABSENT: systolic murmur Pulses: PRESENT: normal radial pulses, normal dorsalis pedis pul Vascular exam: PRESENT: normal capillary refill GI/Abdominal exam: PRESENT: soft. ABSENT: tenderness Musculoskeletal exam: PRESENT: ambulatory Psychiatric exam: PRESENT: appropriate affect, normal mood. ABSENT: depressed Skin exam: PRESENT: dry, warm - Extreminites General upper extremity: Normal inspection, Normal ROM General lower extremity: Other - orthotic brace to LLE Shoulder: Normal Arm: Normal Elbow: Normal Forearm: Normal Wrist: Normal Hand: Normal - Neurological Neuro grossly intact: Yes Cognition: Normal A[place]or Coma Scale Eye Opening: Spontaneous Kathy Coma Scale Verbal: Oriented [place] Coma Scale Motor: Obeys Commands Kathy Coma Scale Total: 15 Speech: Normal. negative: Dysarthria, Expressive aphasia Cranial nerves: Normal. negative: Facial palsy, Tongue deviation Cerebellar coordination: negative: Finger-nose rhombey - Patient able to complete on left side with focus and redirecting unintended movements Motor strength normal: negative: LLE Additional motor exam normals: Equal customer account administrator Sensory: Altered light touch - Left side of face, left upper extremity, left lower extremity Reflex grade: 0=absent. 1=hypoactive. 2=normal. 3=increased. 4=clonus Note: Neurologic: Mental status: the patient is alert and oriented to person, place, and time with clear and fluent speech. Visual colon without obvious deficit. PERRL. Extraocular movements are intact without ptosis. facial sensation is decreased to left side to light touch stimuli. Facial muscle strength is equal. Patient able to furrow and raise eyebrows normally. Hearing is normal to casual conversation. Palate and uvula elevate symmetrically, with intact gag reflex. Voice is normal. Shoulder shrug strong bilaterally. Tongue protrudes midline and moves symmetrically. Plantar reflex is downward bilaterally. Motor: Good muscle tone. Strength is 5/5 to bilateral upper and right lower extremity , weakness to LLE is at pt's baseline, customer account administrator strength equal bilaterally. No evidence of rigidity or spasticity upon exam. Faint intention tremor noted to left hand. Cerebellar: steady gait with use of wheeled walker. Modified Lesly scale: 1 Results - x laboratory: 08/07/17 08/07/17 08/08/17 19:00 21:55 04:06 WBC RBC Hgb Hct MCV MCH MCHC RDW Plt Count Sodium Potassium Chloride Carbon Dioxide Anion Gap BUN Creatinine Est GFR ( Amer) Est GFR (Non-Af Amer) Glucose POC Glucose 93 Hemoglobin A1c % 7.1 H Calcium Troponin I < 0.012 Triglycerides Cholesterol LDL Cholesterol Direct VLDL Cholesterol HDL Cholesterol 08/08/17 08/08/17 08/08/17 04:06 04:06 06:15 WBC 7.0 RBC 4.08 Hgb 11.5 L Hct 34.6 L MCV 85 MCH 28.2 MCHC 33.2 RDW 14.4 H Plt Count 241 Sodium 146.7 H Potassium 4.7 Chloride 112 H Carbon Dioxide 25 Anion Gap 10 BUN 18 Creatinine 0.98 Est GFR ( Amer) > 60 Est GFR (Non-Af Amer) 55 L Glucose 60 L POC Glucose 75 Hemoglobin A1c % Calcium 9.3 Troponin I Triglycerides 71 Cholesterol 123.81 LDL Cholesterol Direct 46 VLDL Cholesterol 14.0 HDL Cholesterol 59 08/08/17 08/08/17 11:50 16:21 WBC RBC Hgb Hct MCV MCH MCHC RDW Plt Count Sodium Potassium Chloride Carbon Dioxide Anion Gap BUN Creatinine Est GFR ( Amer) Est GFR (Non-Af Amer) Glucose POC Glucose 195 H 157 H Hemoglobin A1c % Calcium Troponin I Triglycerides Cholesterol LDL Cholesterol Direct VLDL Cholesterol HDL Cholesterol Radiology: Brain MRI with MRA 08/07/17 16:20 IMPRESSION: Old hemorrhagic infarct right thalamus. No acute ischemic change. Unremarkable [place] MRA exam EVIDENCE OF ACUTE STROKE: NO. Carotid Doppler Study 08/08/17 16:21 IMPRESSION: NO HEMODYNAMICALLY SIGNIFICANT STENOSIS. Assessment and Plan - Plan Plan: Plan Stroke Risk Factor Management: 1. Continue ASA 81 mg daily for stroke prevention. -watch for signs of abnormal bleeding/bruising 2. Blood pressure: Goal BP <140/90 - blood pressure today 141/69 -take blood pressure measurements daily and keep a log for PCP to review -Blood pressure education was provided 3. Cholesterol: LDL 46 Goal LDL <70, goal HDL>50. -extensive cholesterol education was provided including therapeutic lifestyle changes and education -continue high intensity statin therapy to maximize risk factor reduction- recommended rechecking fasting lipid panel in 6-8 weeks to ensure efficacy. 4. Diabetes Management: goal A1c <7% -A1c 7.1%, controlled- need strict control of blood sugars to decrease stroke risk. -Follow up with PCP to optimize diabetes control -Extensive diabetes education was provided including lifestyle changes and education handout 5. Rehabilitation: Maximize physical activity for full rehabilitation. -when you are more fatigued, stressed, or have an infection your symptoms may be more apparent -discussed fall risk factors and risk reduction strategies -physical activity as tolerated to a goal of 30 minutes exercise at least 5 days a week. -encouraged brain healthy activities such as puzzles, word searches. 6. Advance directives: -counselling was provided regarding advance directives -referred to PCP for creation of documents We discussed signs and symptoms of stroke and when to call 911 such as any new numbness, weakness, dyarthria, dysphagia, aphasia, dizziness, diplopia, vision loss, or balance problems.
== END 2017-08-08 21:45 | disposition home or self-care (01) ==
LOC: ER 13:43 → EH 15:53 → 3N 18:03
PROVIDERS: ADMIT Internal Medicine; ATTEND Internal Medicine
DX: G45.9 Transient cerebral ischemic attack, unspecified (principal); I10 Essential (primary) hypertension; E78.5 Hyperlipidemia, unspecified; E11.9 Type 2 diabetes mellitus without complications; E66.9 Obesity, unspecified; I25.10 Atherosclerotic heart disease of native coronary artery without angina pectoris; E86.0 Dehydration; I69.354 Hemiplegia and hemiparesis following cerebral infarction affecting left non-dominant side; I69.351 Hemiplegia and hemiparesis following cerebral infarction affecting right dominant side; I69.398 Other sequelae of cerebral infarction; R20.8 Other disturbances of skin sensation; Z79.899 Other long term (current) drug therapy; Z85.51 Personal history of malignant neoplasm of bladder; Z79.84 Long term (current) use of oral hypoglycemic drugs; Z68.32 Body mass index [BMI] 32.0-32.9, adult; Z95.5 Presence of coronary angioplasty implant and graft; Z98.890 Other specified postprocedural states
CPT/HCPCS: 93005; 99291; 36415 ×2; 82553; 82962 ×2; 82550; 85025; 85027; 80048; 80053; 84484; 83036; 80061; 93306; 93880; 70551; 70544; 71045; 70450; 93010; 97110; 97116; 97163; 97166; J1644; A9270 ×7; J3490 ×2; J7030; G8978; G8979; G8987; G8988; G8989; G0378

== ENCOUNTER 2018-05-19 11:05 | Emergency (ER) | payer MEDICARE ==
[2018-05-19 11:14] VITALS: BP 161/67
[2018-05-19 12:22] LABS: ABSOLUTE BASOPHILS # (AUTO) 0.1 10^3/uL (0.0-0.2); ABSOLUTE EOSINOPHILS # (AUTO) 0.1 10^3/uL (0.0-0.6); ABSOLUTE LYMPHOCYTES (AUTO) 1.5 10^3/uL (0.5-4.7); ABSOLUTE MONOCYTES (AUTO) 0.4 10^3/uL (0.1-1.4); ABSOLUTE NEUT (AUTO) 5.1 10^3/uL (1.7-8.2); BASOPHILS % (AUTO) 0.9 % (0-2); HEMATOCRIT 36.8 % (36.0-47.0); HEMOGLOBIN 12.3 g/dL (12.0-15.5); LYMPHOCYTES % (AUTO) 21.3 % (13-45); MEAN CORPUSCULAR HEMOGLOBIN 29.2 pg (27.0-33.4); MEAN CORPUSCULAR HGB CONC 33.4 g/dL (32.0-36.0); MEAN CORPUSCULAR VOLUME 88 fl (80-97); MONOCYTES % (AUTO) 5.4 % (3-13); PLATELET COUNT 268 10^3/uL (150-450); RED BLOOD COUNT 4.21 10^6/uL (3.72-5.28); RED CELL DISTRIBUTION WIDTH 14.3 % (11.5-14.0); SEGMENTED NEUTROPHILS % (AUTO) 70.4 % (42-78); TOTAL CELLS COUNTED % (AUTO) 100 %; WHITE BLOOD COUNT 7.3 10^3/uL (4.0-10.5)
[2018-05-19 12:30] LABS: INTERNATIONAL RATION (INR) 0.96; PROTHROMBIN TIME 13.2 SEC (11.4-15.4)
[2018-05-19 12:51] LABS: ALANINE AMINOTRANSFERASE 32 U/L (9-52); ALBUMIN 4.4 g/dL (3.5-5.0); ALKALINE PHOSPHATASE 125 U/L (38-126); ANION GAP 10 (5-19); ASPARTATE AMINO TRANSFERASE 27 U/L (14-36); BILIRUBIN,DIRECT 0.2 mg/dL (0.0-0.4); BILIRUBIN,TOTAL 0.4 mg/dL (0.2-1.3); BLOOD UREA NITROGEN 28 mg/dL (7-20); CALCIUM 9.6 mg/dL (8.4-10.2); CARBON DIOXIDE 23 mmol/L (22-30); CHLORIDE 112 mmol/L (98-107); GLUCOSE 80 mg/dL (75-110); SODIUM 145.2 mmol/L (137-145); TOTAL PROTEIN 7.1 g/dL (6.3-8.2)
--- NOTE | 2018-05-19 14:04 | ER Document Report ---
Entered by CATHIE NICK SCRIBE 05/19/18 1218 Acting as scribe for:ZANDRA PEREZ DO ED Medical Screen (RME) - General Chief Complaint: Rectal Bleeding Stated Complaint: RECTAL BLEEDING Time Seen by Provider: 05/19/18 11:55 Primary Care Provider: ASHLEY HARO MD [Primary Care Provider] - Follow up as needed Mode of Arrival: Ambulatory Information source: Patient Notes: Patient is a 73-year-old female presents emergency department complaining of rectal bleeding onset this morning. Patient states she was in the shower when she noticed bright red blood. She states she proceeded to wipe her rectum and noticed blood on the wash cloth. She reports constipation a few days ago. She denies a history of rectal bleeding, current rectal pain or dizziness. She reports having a colonoscopy 1 year ago where 1 polyp was removed. I have greeted and performed a rapid initial assessment of the patient. A comprehensive ED assessment and evaluation of the patient, analysis of test results, and completion of the medical decision making process will be conducted by additional ED providers. GENERAL: Alert, interacts well. No acute distress. HEAD: Normocephalic, atraumatic. EYES: Pupils equal, round, and reactive to light. Extraocular movements intact. ENT: Oral mucosa moist, tongue midline. NECK: Full range of motion. Supple. Trachea midline. LUNGS: Clear to auscultation bilaterally, no wheezes, rales, or rhonchi. No respiratory distress. HEART: Regular rate and rhythm. No murmurs, gallops, or rubs. EXTREMITIES: Moves all 4 extremities spontaneously. NEUROLOGICAL: Alert and oriented x3. Normal speech. PSYCH: Normal affect, normal mood. SKIN: Warm, dry, normal turgor. No rashes or lesions noted. TRAVEL OUTSIDE OF THE [place] IN LAST 30 DAYS: No - Related Data Allergies/Adverse Reactions: Sulfa (Sulfonamide Antibiotics) Allergy (Verified 05/19/18 11:08) Past Medical History - Social History Frequency of alcohol use: None Drug Abuse: None - Past Medical History Cardiac Medical History: Reports: Hx Coronary Artery Disease, Hx Hypercholesterolemia, Hx Hypertension Denies: Hx Congestive Heart Failure, Hx DVT, Hx Heart Attack Pulmonary Medical History: Reports: Hx COPD Denies: Hx Pneumonia, Hx Respiratory Failure Endocrine Medical History: Reports: Hx Diabetes Mellitus Type 2 Renal/ Medical History: Denies: Hx Peritoneal Dialysis Psychiatric Medical History: Reports: Hx Depression Past Surgical History: Reports: Hx Cardiac Catheterization, Hx Cardiac Surgery - stent x3, Hx Section - x3, Hx Orthopedic Surgery - left ankle, right knee - Immunizations History of Influenza Vaccine for 12/2016 - 05/2017 Season: Yes Physical Exam - Vital signs Vitals: Temp Pulse Resp BP Pulse Ox 98.3 F 78 18 161/67 H 99 05/19/18 11:12 05/19/18 11:12 05/19/18 11:12 05/19/18 11:12 05/19/18 11:12 Course - Vital Signs Vital signs: Temp Pulse Resp BP Pulse Ox 98.3 F 78 18 161/67 H 99 05/19/18 11:12 05/19/18 11:12 05/19/18 11:12 05/19/18 11:12 05/19/18 11:12 - Laboratory Result Diagrams: 05/19/18 12:03 05/19/18 12:03 Doctor's Discharge - Discharge Referrals: ASHLEY HARO MD [Primary Care Provider] - Follow up as needed I personally performed the services described in the documentation, reviewed and edited the documentation which was dictated to the scribe in my presence, and it accurately records my words and actions.
--- NOTE | 2018-05-19 15:01 | ER Document Report ---
ED General - General Chief Complaint: Rectal Bleeding Stated Complaint: RECTAL BLEEDING Time Seen by Provider: 05/19/18 11:55 Primary Care Provider: ASHLEY HARO MD [ACTIVE STAFF] - Follow up as needed Mode of Arrival: Ambulatory TRAVEL OUTSIDE OF THE [place] IN LAST 30 DAYS: No - HPI Notes: Patient presents to the emergency department for evaluation of bright red rectal bleeding. She states she woke up at about 4 AM to have a bowel movement. She states it started as a normal stool, became looser. She states she was showering later on in the day and she noticed bright red blood coming out of her rectum. She is unsure as to whether or not she is bleeding at the time of my initial evaluation. She has had a colonoscopy in the past. She states it was roughly a year ago. She did have a polyp but no other acute findings per the patient. She denies any fevers or chills. No nausea or vomiting. Eating and eating normally. - Related Data Allergies/Adverse Reactions: Sulfa (Sulfonamide Antibiotics) Allergy (Verified 05/19/18 11:08) Past Medical History - General Information source: Patient - Social History Smoking Status: Never Smoker Frequency of alcohol use: None Drug Abuse: None Family History: None Patient has suicidal ideation: No Patient has homicidal ideation: No - Past Medical History Cardiac Medical History: Reports: Hx Coronary Artery Disease, Hx Hypercholesterolemia, Hx Hypertension Denies: Hx Congestive Heart Failure, Hx DVT, Hx Heart Attack Pulmonary Medical History: Reports: Hx COPD Denies: Hx Pneumonia, Hx Respiratory Failure Endocrine Medical History: Reports: Hx Diabetes Mellitus Type 2 Renal/ Medical History: Denies: Hx Peritoneal Dialysis Psychiatric Medical History: Reports: Hx Depression Past Surgical History: Reports: Hx Cardiac Catheterization, Hx Cardiac Surgery - stent x3, Hx Section - x3, Hx Orthopedic Surgery - left ankle, right knee Review of Systems - Review of Systems Constitutional: No symptoms reported EENT: No symptoms reported Cardiovascular: No symptoms reported Respiratory: No symptoms reported Gastrointestinal: See HPI Genitourinary: No symptoms reported Female Genitourinary: No symptoms reported Musculoskeletal: No symptoms reported Skin: No symptoms reported Neurological/Psychological: No symptoms reported Physical Exam - Vital signs Vitals: Temp Pulse Resp BP Pulse Ox 98.3 F 78 18 161/67 H 99 05/19/18 11:12 05/19/18 11:12 05/19/18 11:12 05/19/18 11:12 05/19/18 11:12 Interpretation: Hypertensive Notes: Reviewed - Notes Notes: Vital signs reviewed, please refer to chart. Patient is normocephalic, atraumatic. Pupils equal round, reactive to light. Neck is supple without meningismus. Heart is regular rate and rhythm. Lungs are clear to auscultation bilaterally. Abdomen is soft, nontender, normoactive bowel sounds throughout. Extremities without cyanosis, clubbing. Rectal exam is performed. The patient does have nonthrombosed external hemorrhoids noted without active bleeding. There is a small amount of blood noted on her pad, but no blood in the rectal vault. No palpable masses. Peripheral pulses are equal. Skin is warm and dry. Patient is awake, alert, neurological exam is nonfocal. Course - Re-evaluation Re-evalutation: 05/19/18 14:59 Patient presents to the emergency department for evaluation. Initial orders were placed by in triage. Patient remained stable throughout the course of her stay. She had no active bleeding throughout the course of her stay. Patient was advised to continue on stool softeners. She is not to take any sort of stimulant laxatives. We did talk about the possible etiologies of bright red blood per rectum. Certainly it seems possible she has internal hemorrhoids given the appearance of her external hemorrhoids. We did talk about diverticulosis as well. She was notified that if her bleeding should resume she needs to return to the ER for evaluation. She voiced understanding to this. 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 I encouraged her to follow- up with him in her primary care physician in the next week as well. She is to return to the emergency department with worsening or new concerning symptoms of any sort. - Vital Signs Vital signs: Temp Pulse Resp BP Pulse Ox 98.3 F 78 18 161/67 H 99 05/19/18 11:12 05/19/18 11:12 05/19/18 11:12 05/19/18 11:12 05/19/18 11:12 - Laboratory Result Diagrams: 05/19/18 12:03 05/19/18 12:03 Laboratory results interpreted by me: 05/19/18 05/19/18 12:03 12:03 RDW 14.3 H Sodium 145.2 H Chloride 112 H BUN 28 H Est GFR ( Amer) 52 L Est GFR (Non-Af Amer) 43 L Discharge - Discharge Clinical Impression: Bright red blood per rectum Condition: Stable Disposition: HOME, SELF-CARE Instructions: Rectal Bleeding, Unclear Cause ([facility]) Additional Instructions: Continue your stool softeners at home. 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 If you develop worsening or new concerning symptoms of any sort, return to the emergency department for r eevaluation. Referrals: ASHLEY HARO MD [ACTIVE STAFF] - Follow up as needed
== END 2018-05-19 15:24 | disposition home or self-care (01) ==
LOC: ER 11:05
DX: K62.5 Hemorrhage of anus and rectum (principal); K64.4 Residual hemorrhoidal skin tags; I25.10 Atherosclerotic heart disease of native coronary artery without angina pectoris; I10 Essential (primary) hypertension; J44.9 Chronic obstructive pulmonary disease, unspecified; E11.9 Type 2 diabetes mellitus without complications; Z88.2 Allergy status to sulfonamides; Z95.5 Presence of coronary angioplasty implant and graft
CPT/HCPCS: 36415; 80053; 85025; 85610; 85730; 99283

== ENCOUNTER → 2018-05-26 | Outpatient (CLI) | payer MEDICARE ==
--- NOTE | 2018-05-26 13:46 | WOMENS IMAGING REPORT ---
EXAM DESCRIPTION: 3D SCREENING MAMMO BILAT COMPLETED DATE/TIME: 05/26/2018 12:06 pm REASON FOR STUDY: Z12.31 ROUTINE 3D BILATERAL SCREENING Z12.31 ENCNTR SCREEN MAMMOGRAM FOR MALIGNAN T NEOPLASM OF JONNA COMPARISON: None available TECHNIQUE: Standard craniocaudal and mediolateral oblique views of each breast recorded using digita l acquisition and breast tomosynthesis. LIMITATIONS: None. FINDINGS: RIGHT BREAST MASSES: No suspicious masses. CALCIFICATIONS: No new or suspicious calcifications. ARCHITECTURAL DISTORTION: None. DEVELOPING DENSITY: None. ASYMMETRY: None noted. OTHER: No other significant findings. LEFT BREAST MASSES: 3 cm mass with architectural distortion and associated microcalcifications left breast 12 o'c lock position 3 cm from the nipple. Diagnostic mammograms with 90 mediolateral view and cone compre ssion CC and MLO orientations, left breast ultrasound recommended for followup. CALCIFICATIONS: Worrisome microcalcifications associated with the left breast mass at 12 o'clock ARCHITECTURAL DISTORTION: Architectural distortion associated with left breast mass at 12 o'clock DEVELOPING DENSITY: None. ASYMMETRY: None noted. OTHER: No other significant findings. Read with the assistance of CAD. .[facility] - R2 Cenova Version 1.3 .[facility] - R2 Cenova Version 2.1 .[facility] - R2 Cenova Version 2.4 .[facility] [place] - R2 Cenova Version 2.4 .[facility] - R2 [employer] Version 9.2 IMPRESSION: No mammographic/ tomosynthesis evidence for malignancy right breast. 3 cm mass with architectural distortion and associated microcalcifications left breast 12 o'clock pos ition, for which additional diagnostic mammograms and ultrasound are recommended BREAST DENSITY: a. The breasts are almost entirely fatty. BIRAD: 0 Incomplete: Needs Additional Imaging Evaluation and/or prior Mammograms for Comparison. RECOMMENDATION: RECOMMENDED FOLLOW-UP: Additional left breast diagnostic mammograms and ultrasound The patient will be contacted for additional imaging. COMMENT: The patient has been notified of the results by letter per MQSA requirements. Additional no tification policies are in place for contacting patient with suspicious or incomplete findings. Quality ID #[id number]: The [employer] recommends an annual screening mammogram for women aged 40 years or over. This facility utilizes a reminder system to ensure that all patients receive reminder letters, and/or direct phone calls for appointments. This includes reminders for routine scr eening mammograms, diagnostic mammograms, or other Breast Imaging Interventions when appropriate. Th is patient will be placed in the appropriate reminder system. The [employer] (ACR) has developed recommendations for screening MRI of the breast s in certain patient populations, to be used in conjunction with mammography. Breast MRI surveillanc e may be appropriate for women with more than 20% lifetime risk of developing breast cancer as deter mined by genetic testing, significant family history of the disease, or history of mantle radiation f or Hodgkins Disease. ACR Practice Guidelines 2008. DBT Technology DBT is a type of tomographic mammography. With conventional mammography, overlapping breast tissue ma y make lesions difficult to detect, even with good compression. DBT uses an x-ray tube that rotates a round the breast, taking images at different angles. These images are then combined to create thin sl ices of the breast that the radiologist can view as a 3D reconstruction. The [employer] unit can perform full-field digital mammograms (2D imaging); or DBT (3D imaging); or both, in a combination mode that quickly performs both the mammogram and the tomosynthesis scan while the breast is still compressed. PQRS 6045F: Fluoroscopic imaging is not utilized for breast tomosynthesis. TECHNICAL DOCUMENTATION: FINDING NUMBER: (1) ASSESSMENT: (1) JOB ID: [id number] [employer]- All Rights Reserved Reading location - IP/workstation name: [email or web address]
== END ==
LOC: WI 11:40
PROVIDERS: ATTEND Internal Medicine Geriatric Medicine
DX: Z12.31 Encounter for screening mammogram for malignant neoplasm of breast (principal)
CPT/HCPCS: 77063; 77067

== ENCOUNTER → 2018-06-08 | Outpatient (CLI) | payer MEDICARE ==
--- NOTE | 2018-06-11 08:47 | WOMENS IMAGING REPORT ---
EXAM DESCRIPTION: LEFT DIAGNOSTIC MAMMO W/CAD COMPLETED DATE/TIME: 06/08/2018 9:51 am REASON FOR STUDY: N63.42 UNSPECIFIED LUMP IN LEFT BREAST,SUBAREOLAR N63.42 UNSPECIFIED LUMP IN LEFT BREAST, SUBAREOLAR COMPARISON: 05/26/2018. TECHNIQUE: Spot compression CC, MLO and non spot compressed mediolateral views of the left breast. Additional targeted breast ultrasound. LIMITATIONS: None. FINDINGS: BREAST LATERALITY: Left MASSES: Irregularly marginated sizable mass persists with spot compression. Suspicious mammographic features. See ultrasound below. CALCIFICATIONS: No new or suspicious calcifications. ARCHITECTURAL DISTORTION: None. DEVELOPING DENSITY: None. ASYMMETRY: None noted. OTHER: No other significant findings. Ultrasound: In the anterior breast close to 12 o'clock, irregular hypoechoic ill marginated mass wit h internal Doppler blood flow detected. This mass measures up to 4 cm. No axillary adenopathy detec gaby. IMPRESSION: 1. Mass in the left breast is highly suspicious. This is amenable to ultrasound-guided core biopsy. BREAST DENSITY: b. There are scattered areas of fibroglandular density. BIRAD: 5 Highly suggestive of malignancy. Biopsy should be performed in the absence of clinical cont ra-indication. RECOMMENDATION: RECOMMENDED FOLLOW UP: Biopsy. SPECIFIC INTERVENTION/IMAGING/CONSULTATION RECOMMENDED:The suspicious finding(s) amenable to US guide d core/vacuum assisted biopsy. COMMUNICATION:Patient instructed by the technologist to followup with referring clinician for results and further management. COMMENT: The patient has been notified of the results by letter per [place] requirements. Additional no tification policies are in place for contacting patient with suspicious or incomplete findings. Quality ID #[id number]: The [employer] [place] recommends an annual screening mammogram for women aged 40 years or over. This facility utilizes a reminder system to ensure that all patients receive reminder letters, and/or direct phone calls for appointments. This includes reminders for routine scr eening mammograms, diagnostic mammograms, or other Breast Imaging Interventions when appropriate. Th is patient will be placed in the appropriate reminder system. The [employer] [place] [employer] (ACR) has developed recommendations for screening MRI of the breast s in certain patient populations, to be used in conjunction with mammography. Breast MRI surveillanc e may be appropriate for women with more than 20% lifetime risk of developing breast cancer as deter mined by genetic testing, significant family history of the disease, or history of mantle radiation f or Hodgkins Disease. ACR Practice Guidelines 2008. TECHNICAL DOCUMENTATION: FINDING NUMBER: (1) ASSESSMENT: (1) JOB ID: [id number] [employer]- All Rights Reserved Reading location - IP/workstation name: [email or web address]
--- NOTE | 2018-06-11 14:55 | WOMENS IMAGING REPORT ---
EXAM DESCRIPTION: U/S BREAST UNILAT LIMITED COMPLETE DATE/TIME: 06/08/2018 10:49 am REASON FOR STUDY: LEFT BREAST MASS N63.42 UNSPECIFIED LUMP IN LEFT BREAST, SUBAREOLAR FINDINGS: Please see combined report for performance of procedure and radiologic supervision and int erpretation. IMPRESSION: Please see combined report for performance of procedure and radiologic supervision and i nterpretation. COMPARISON Mammograms 06/08/2018 Reading location - IP/workstation name: [email or web address]
== END ==
LOC: WI 09:26
PROVIDERS: ATTEND Internal Medicine Geriatric Medicine
DX: N63.42 Unspecified lump in left breast, subareolar (principal)
CPT/HCPCS: 76642

== ENCOUNTER → 2018-06-19 | Day surgery (SDC) | payer MEDICARE ==
--- NOTE | 2018-06-23 16:44 | WOMENS IMAGING REPORT ---
EXAM DESCRIPTION: U/S BREAST BX; LEFT DIAGNOSTIC MAMMO W/CAD COMPLETED DATE/TIME: 06/23/2018 3:42 pm; 06/19/2018 1:43 pm REASON FOR STUDY: N63.20 UNSPECIFIED LUMP IN THE LEFT BREAST, UNSPECIFIED QUADRANT; N63.20 S/P LEFT US BIOPSY FOR CLIP PLACEMENT N63.20 UNSPECIFIED LUMP IN THE LEFT BREAST, UNSPECIFIED QUAD COMPARISON: None. TECHNIQUE: The procedure was discussed with the patient and the patient agreed to proceed. The patient was scanned and the area of interest in the 12 o'clock position 5 cm from the nipple of the left breast was localized. This correlates with the area of concern on prior imaging studies. Th is area was targeted for ultrasound-guided core biopsy. After sterile skin prep and 3.5 mL local lidocaine 1% for skin and deep tissue anesthesia, a 14 gauge coaxial core biopsy needle was used to obtain several cores of tissue from the lesion. Under ultras ound guidance, a ribbon clip was placed in the areas sampled. There were no immediate post-procedure complications. MAMMOGRAM: Post-procedure two view mammogram was acquired in the digital mammogram suite. The clip wa s in the expected location. No significant hematoma. 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 LIMITATIONS: None. FINDINGS: Ultrasound guided breast biopsy as described above. POST PROCEDURE MAMMOGRAMS FOR MARKER PLACEMENT: Yes IMPRESSION: ULTRASOUND-GUIDED CORE BIOPSY OF THE LEFT BREAST YIELDS A DIAGNOSIS OF invasive ductal c arcinoma with mucinous features BI-RADS 6, KNOWN MALIGNANCY, APPROPRIATE ACTION SHOULD BE TAKEN COMMENT: COMMUNICATION: THIS RESULT WAS DISCUSSED DIRECTLY WITH THE PATIENT, 1400 HOURS 06/23/2018. S HE UNDERSTANDS THAT THIS IS A MALIGNANT DIAGNOSIS WHICH REQUIRES FURTHER INTERVENTION Patient medication list reviewed: Yes- Quality ID# [id number]:Eligible professional attests to documenting i n the medical record they obtained, updated, or reviewed the patient's current medications. TECHNICAL DOCUMENTATION: JOB ID: [id number] [employer]- All Rights Reserved Reading location - IP/workstation name: [email or web address]
== END ==
LOC: RAD 06-15 14:29
PROVIDERS: ATTEND Internal Medicine Geriatric Medicine
DX: N63.20 Unspecified lump in the left breast, unspecified quadrant (principal)
CPT/HCPCS: 19083; 88305; 88341; 88342

== ENCOUNTER 2018-07-16 12:00 | Observation (INO) | payer MEDICARE ==
--- NOTE | 2018-07-16 12:20 | ER Document Report ---
ED General - General Chief Complaint: General Weakness Stated Complaint: WEAKNESS Time Seen by Provider: 07/16/18 12:12 Primary Care Provider: ALBINO FREY MD [Primary Care Provider] - Follow up as needed TRAVEL OUTSIDE OF THE [place] IN LAST 30 DAYS: No - HPI Notes: Patient is a 73-year-old female with a history of hypertension, type 2 diabetes, obesity, CVA, coronary artery disease with stent placement, recently diagnosed breast cancer on the left side who presents to the emergency department by EMS complaining of generalized weakness this morning with some slurring of her speech. Patient states that her sugar was found to be low and was given sugar at that time. Patient states that her symptoms have since greatly improved and she is feeling much better. She no longer has any slurring. Patient states that she is still eating and drinking without difficulty. She is taking metformin. She is urinating normally and having normal bowel movements. She has no other concerns or complaints at this time. Denies any headache, fever, head injury, neck pain, changes in vision/mentation/hearing, URI, sore throat, chest pain, palpitations, syncope, cough, shortness of breath, wheeze, dyspnea, abdominal pain, nausea/vomiting/diarrhea, urinary retention, dysuria, hematuria, loss of control of bowel or bladder, numbness/tingling, saddle anesthesia, muscle paralysis, or rash. - Related Data Allergies/Adverse Reactions: Sulfa (Sulfonamide Antibiotics) Allergy (Verified 07/09/18 15:45) Past Medical History - Social History Smoking Status: Unknown if Ever Smoked Family History: None - Past Medical History Cardiac Medical History: Reports: Hx Coronary Artery Disease, Hx Hypercholester olemia, Hx Hypertension Denies: Hx Congestive Heart Failure, Hx DVT, Hx Heart Attack Pulmonary Medical History: Reports: Hx COPD Denies: Hx Pneumonia, Hx Respiratory Failure Endocrine Medical History: Reports: Hx Diabetes Mellitus Type 2 Renal/ Medical History: Denies: Hx Peritoneal Dialysis Psychiatric Medical History: Reports: Hx Depression Past Surgical History: Reports: Hx Cardiac Catheterization, Hx Cardiac Surgery - stent x3, Hx Section - x3, Hx Orthopedic Surgery - left ankle, right knee - Immunizations Immunizations up to date: Yes Hx Diphtheria, Pertussis, Tetanus Vaccination: Yes Review of Systems - Review of Systems -: Yes All other systems reviewed and negative Physical Exam - Vital signs Vitals: Temp 98.1 F 07/16/18 12:11 - Notes Notes: PHYSICAL EXAMINATION: GENERAL: Well-appearing, well-nourished and in no acute distress. A&Ox4. Answers questions appropriately. HEAD: Atraumatic, normocephalic. Non-tender. EYES: Pupils equal round and reactive to light, extraocular movements intact, sclera anicteric, conjunctiva are normal. No nystagmus. vis colon intact. ENT: Nares patent and without discharge. oropharynx clear without exudates. No tonsilar hypertrophy or erythema. Moist mucous membranes. NECK: Normal range of motion, supple without lymphadenopathy. No ri gidity/meningismus. No midline tenderness. LUNGS: Breath sounds clear to auscultation bilaterally and equal. No wheezes rales or rhonchi. HEART: Regular rate and rhythm without murmurs, rubs, gallops. ABDOMEN: Soft, nontender, nondistended abdomen. No guarding, no rebound. Normal bowel sounds present. No CVA tenderness bilaterally. Musculoskeletal: Ext b/l: FROM to passive/active. Strength 5+/5. No deficits noted. No bony tenderness of extremities. No lower extremity asymmetry. Caroline negative bilaterally. Extremities: No cyanosis, clubbing, or edema b/l. Peripheral pulses 2+. Capillary refill less than 2 seconds. NEUROLOGICAL: NIH 0. GCS 15. Cranial nerves grossly intact. Normal speech, normal gait. Normal sensory, motor exams. Reflexes 2+ b/l. YENI's negative. P ronator drift negative. Heel/hughes, finger/nose wnl. PSYCH: Normal mood, normal affect. SKIN: Warm, Dry, normal turgor, no rashes or lesions noted. Course - Re-evaluation Re-evalutation: 07/16/18 13:50 Patient is an afebrile 73-year-old female who presents emergency department generalized weakness and mild dehydration. Vitals are currently acceptable without significant tachycardia, tachypnea, or hypoxia. PE is otherwise unr emarkable. Her abdomen soft nontender. She is nontoxic-appearing and is able to tolerate p.o. without difficulty. Cardiac labs are unremarkable including EKG and chest x-ray. CT scan of the head was unremarkable. Her CMP does show mild SHANDA suggestive of probable dehydration. Her glucose is appropriate. Patient states that she is feeling much better aside from remaining mild generalized weakness. I did call and speak with Dr. Frey who gave the option of obs/tele or discharge home. I did thoroughly review this case with the patient and her options and patient would like to be admitted for rehydration. No further labs or imaging warranted at this time. Case also reviewed with Dr. Luciano who agrees with plan. - Vital Signs Vital signs: Temp Pulse Resp BP Pulse Ox 98.1 F 07/16/18 12:11 - Laboratory Result Diagrams: 07/16/18 12:05 07/16/18 12:05 Laboratory results interpreted by me: 07/16/18 07/16/18 07/16/18 12:05 12:05 12:12 Hgb 11.4 L Hct 35.2 L RDW 14.7 H Chloride 112 H Carbon Dioxide 20 L BUN 26 H Creatinine 1.94 H Est GFR ( Amer) 30 L Est GFR (Non-Af Amer) 25 L Glucose 221 H POC Glucose 135 H Calcium 8.3 L Total Protein 5.9 L Albumin 3.3 L Discharge - Discharge Clinical Impression: Generalized weakness Condition: Stable Disposition: ADMITTED OBSERVATION Admitting Provider: Camron Unit Admitted: Telemetry Referrals: ALBINO FREY MD [Primary Care Provider] - Follow up as needed
[2018-07-16 12:29] LABS: ABSOLUTE BASOPHILS # (AUTO) 0.1 10^3/uL (0.0-0.2); ABSOLUTE EOSINOPHILS # (AUTO) 0.2 10^3/uL (0.0-0.6); ABSOLUTE LYMPHOCYTES (AUTO) 1.3 10^3/uL (0.5-4.7); ABSOLUTE MONOCYTES (AUTO) 0.3 10^3/uL (0.1-1.4); ABSOLUTE NEUT (AUTO) 4.3 10^3/uL (1.7-8.2); EOSINOPHILS % (AUTO) 2.8 % (0-6); HEMATOCRIT 35.2 % (36.0-47.0); HEMOGLOBIN 11.4 g/dL (12.0-15.5); LYMPHOCYTES % (AUTO) 20.7 % (13-45); MEAN CORPUSCULAR HEMOGLOBIN 28.3 pg (27.0-33.4); MEAN CORPUSCULAR HGB CONC 32.3 g/dL (32.0-36.0); MEAN CORPUSCULAR VOLUME 88 fl (80-97); MONOCYTES % (AUTO) 4.9 % (3-13); PLATELET COUNT 261 10^3/uL (150-450); RED BLOOD COUNT 4.02 10^6/uL (3.72-5.28); RED CELL DISTRIBUTION WIDTH 14.7 % (11.5-14.0); SEGMENTED NEUTROPHILS % (AUTO) 70.6 % (42-78); TOTAL CELLS COUNTED % (AUTO) 100 %; WHITE BLOOD COUNT 6.2 10^3/uL (4.0-10.5)
--- NOTE | 2018-07-16 12:37 | RADIOLOGY REPORT (SQ) ---
EXAM DESCRIPTION: CHEST SINGLE VIEW COMPLETED DATE/TIME: 07/16/2018 12:29 pm REASON FOR STUDY: weakness COMPARISON: 07/09/2018 EXAM PARAMETERS: NUMBER OF VIEWS: One view. TECHNIQUE: Single frontal radiographic view of the chest acquired. RADIATION DOSE: NA LIMITATIONS: None. FINDINGS: LUNGS AND PLEURA: No opacities, masses or pneumothorax. No pleural effusion. MEDIASTINUM AND HILAR STRUCTURES: No masses. Contour normal. HEART AND VASCULAR STRUCTURES: Heart normal in size. Normal vasculature. BONES: No acute findings. HARDWARE: None in the chest. OTHER: No other significant finding. IMPRESSION: NO ACUTE RADIOGRAPHIC FINDING IN THE CHEST. TECHNICAL DOCUMENTATION: JOB ID: [id number] [employer]- All Rights Reserved Reading location - IP/workstation name: [email or web address]
[2018-07-16 12:38] LABS: INTERNATIONAL RATION (INR) 0.97; PROTHROMBIN TIME 13.4 SEC (11.4-15.4)
--- NOTE | 2018-07-16 12:47 | RADIOLOGY REPORT (SQ) ---
EXAM DESCRIPTION: CT HEAD WITHOUT COMPLETED DATE/TIME: 07/16/2018 12:36 pm REASON FOR STUDY: weakness generalized, slurring- resolved COMPARISON: CT brain 08/07/2017 MRI brain 08/07/2017 TECHNIQUE: Axial images acquired through the brain without intravenous contrast. Images reviewed wi th bone, brain and subdural windows. Additional sagittal and coronal reconstructions were generated. Images stored on PACS. All CT scanners at this facility use dose modulation, iterative reconstruction, and/or weight based d osing when appropriate to reduce radiation dose to as low as reasonably achievable (ALARA). [facility]: Dose Right [facility]: CareDose [facility]: Dose Right [facility]: Teradose 4D [facility]: [place] RADIATION DOSE: CT Rad equipment meets quality standard of care and radiation dose reduction techniq ues were employed. CTDIvol: 53.2 mGy. DLP: 1017 mGy-cm. mGy. LIMITATIONS: None. FINDINGS: VENTRICLES: Normal size and contour. CEREBRUM: No masses. No hemorrhage. No midline shift. No evidence for acute infarction. Tiny lacun ar infarct right thalamus axial image 18. Minimal age-appropriate bifrontal and biparietal chronic s mall vessel ischemic change CEREBELLUM: No masses. No hemorrhage. No alteration of density. No evidence for acute infarction. EXTRAAXIAL SPACES: No fluid collections. No masses. ORBITS AND GLOBE: No intra- or extraconal masses. Normal contour of globe without masses. CALVARIUM: No fracture. PARANASAL SINUSES: No fluid or mucosal thickening. SOFT TISSUES: No mass or hematoma. OTHER: No other significant finding. IMPRESSION: No acute findings EVIDENCE OF ACUTE STROKE: NO. COMMENT: Quality ID # [id number]: Final reports with documentation of one or more dose reduction techniques (e.g., Automated exposure control, adjustment of the mA and/or kV according to patient size, use of iterative reconstruction technique) TECHNICAL DOCUMENTATION: JOB ID: [id number] [employer]- All Rights Reserved Reading location - IP/workstation name: [email or web address]
[2018-07-16 12:48] LABS: ALANINE AMINOTRANSFERASE 21 U/L (9-52); ALBUMIN 3.3 g/dL (3.5-5.0); ALKALINE PHOSPHATASE 92 U/L (38-126); ANION GAP 10 (5-19); ASPARTATE AMINO TRANSFERASE 17 U/L (14-36); BILIRUBIN,DIRECT 0.2 mg/dL (0.0-0.4); BILIRUBIN,TOTAL 0.4 mg/dL (0.2-1.3); BLOOD UREA NITROGEN 26 mg/dL (7-20); CALCIUM 8.3 mg/dL (8.4-10.2); CARBON DIOXIDE 20 mmol/L (22-30); CHLORIDE 112 mmol/L (98-107); GLUCOSE 221 mg/dL (75-110); POTASSIUM 4.7 mmol/L (3.6-5.0); SODIUM 142.2 mmol/L (137-145); TOTAL PROTEIN 5.9 g/dL (6.3-8.2)
[2018-07-16] MEDS: NORMAL SALINE 1000 ML 1,000 ML IV PRN ×2 (13:21→13:22)
[2018-07-16] MEDS ORDERED: NORMAL SALINE 1000 ML 1,000 ML IV PRN (18:35)
[2018-07-16] MEDS ORDERED: DEXTROSE 40% GEL 15 GM TUBE PO PRN ×2 (18:39)
[2018-07-16] MEDS ORDERED: GLUCAGON,HUMAN RECOMB 1 MG INJ IM PRN (18:39)
[2018-07-16] MEDS ORDERED: DEXTROSE 50%-WATER 25 GM/50 ML DISP.SYRIN IV PRN ×2 (18:39)
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
[2018-07-16] MEDS ORDERED: TRAMADOL HCL 50 MG TABLET PO PRN (21:11)
[2018-07-16] MEDS: METOPROLOL TARTRATE 50 MG TABLET PO SCH (21:46)
[2018-07-16] MEDS: INSULIN LISPRO 100 UNIT/ML 3 ML VIAL SUBCUT SCH (21:47)
[2018-07-16] MEDS ORDERED: ATORVASTATIN CALCIUM 40 MG TABLET PO SCH (22:00)
--- NOTE | 2018-07-16 23:20 | EKG REPORT ---
SEVERITY:- ABNORMAL ECG - SINUS RHYTHM BORDERLINE LEFT AXIS DEVIATION ABNRM R PROG, CONSIDER ASMI OR LEAD PLACEMENT : Confirmed by: Cortney Null 16-Jul-2018 23:19:47
[2018-07-17] MEDS: INSULIN LISPRO 100 UNIT/ML 3 ML VIAL SUBCUT SCH ×3 (08:25→15:50)
[2018-07-17 08:46] LABS: ABSOLUTE BASOPHILS # (AUTO) 0.1 10^3/uL (0.0-0.2); ABSOLUTE EOSINOPHILS # (AUTO) 0.3 10^3/uL (0.0-0.6); ABSOLUTE LYMPHOCYTES (AUTO) 1.5 10^3/uL (0.5-4.7); ABSOLUTE MONOCYTES (AUTO) 0.4 10^3/uL (0.1-1.4); ABSOLUTE NEUT (AUTO) 3.4 10^3/uL (1.7-8.2); EOSINOPHILS % (AUTO) 4.6 % (0-6); HEMOGLOBIN 11.1 g/dL (12.0-15.5); LYMPHOCYTES % (AUTO) 26.4 % (13-45); MEAN CORPUSCULAR HEMOGLOBIN 28.3 pg (27.0-33.4); MEAN CORPUSCULAR HGB CONC 32.7 g/dL (32.0-36.0); MEAN CORPUSCULAR VOLUME 87 fl (80-97); MONOCYTES % (AUTO) 6.3 % (3-13); PLATELET COUNT 235 10^3/uL (150-450); RED BLOOD COUNT 3.93 10^6/uL (3.72-5.28); RED CELL DISTRIBUTION WIDTH 14.4 % (11.5-14.0); SEGMENTED NEUTROPHILS % (AUTO) 61.7 % (42-78); TOTAL CELLS COUNTED % (AUTO) 100 %; WHITE BLOOD COUNT 5.6 10^3/uL (4.0-10.5)
[2018-07-17 09:13] LABS: ANION GAP 9 (5-19); BLOOD UREA NITROGEN 15 mg/dL (7-20); CALCIUM 8.9 mg/dL (8.4-10.2); CARBON DIOXIDE 19 mmol/L (22-30); CHLORIDE 117 mmol/L (98-107); GLUCOSE 116 mg/dL (75-110); POTASSIUM 4.6 mmol/L (3.6-5.0); SODIUM 144.8 mmol/L (137-145)
[2018-07-17] MEDS: METOPROLOL TARTRATE 50 MG TABLET PO SCH (09:56)
[2018-07-17] MEDS ORDERED: CLOPIDOGREL BISULFATE 75 MG TABLET PO SCH (10:00)
[2018-07-17] MEDS ORDERED: AMLODIPINE BESYLATE 5 MG TABLET PO SCH (10:00)
[2018-07-17] MEDS ORDERED: PANTOPRAZOLE SODIUM 40 MG TABLET.DR PO SCH (10:00)
[2018-07-17 16:07] VITALS: BP 170/68
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
== END 2018-07-17 17:18 | disposition home or self-care (01) ==
LOC: ER 12:00 → EH 14:02 → 4W 17:37
PROVIDERS: ADMIT Internal Medicine Geriatric Medicine; ATTEND Internal Medicine Geriatric Medicine
DX: R53.1 Weakness (principal); N17.9 Acute kidney failure, unspecified; R07.89 Other chest pain; V89.2XXA Person injured in unspecified motor-vehicle accident, traffic, initial encounter; E11.9 Type 2 diabetes mellitus without complications; I10 Essential (primary) hypertension; E78.5 Hyperlipidemia, unspecified; K21.9 Gastro-esophageal reflux disease without esophagitis; C50.912 Malignant neoplasm of unspecified site of left female breast; I25.10 Atherosclerotic heart disease of native coronary artery without angina pectoris; R47.81 Slurred speech; E11.649 Type 2 diabetes mellitus with hypoglycemia without coma; E86.0 Dehydration; E66.9 Obesity, unspecified; F32.9 Major depressive disorder, single episode, unspecified; R19.7 Diarrhea, unspecified; M19.90 Unspecified osteoarthritis, unspecified site; Z95.5 Presence of coronary angioplasty implant and graft; Z86.73 Personal history of transient ischemic attack (TIA), and cerebral infarction without residual deficits; Z79.899 Other long term (current) drug therapy; Z79.84 Long term (current) use of oral hypoglycemic drugs; Z79.02 Long term (current) use of antithrombotics/antiplatelets; Z59.8 Other problems related to housing and economic circumstances
CPT/HCPCS: 93005; 99285; 36415 ×2; 82962 ×2; 85025 ×2; 85610; 80048; 80053; 84484; 71045; 70450; 93010; G0378 ×2; A9270 ×5; J7030; J3490; J1815